=== PATIENT | male | born 1980 | race Hispanic/Latino ===

== ENCOUNTER 2017-05-14 11:32 | Emergency (ER) | payer SELFPAY ==
[2017-05-14] MEDS ORDERED: HYDROcodone/Acetaminophen 5/325 mg Tablet ONE (12:28)
--- NOTE | 2017-05-14 13:04 | RAD ---
THREE VIEWS OF THE RIGHT SHOULDER 05/14/2017 HISTORY: Limited range of motion and pain. COMPARISON: None. FINDINGS: There is mild degenerative change at the right AC joint, with interspace narrowing and superior oste ophyte formation. There is no widening of the AC or CC interspace, and no displaced fracture or dis location is noted. IMPRESSION: No acute findings. Degenerative changes noted at the right acromioclavicular joint. POS: BROOKE
== END 2017-05-14 12:32 | disposition home or self-care (01) ==
LOC: MADERS 11:32
DX: S46.011A Strain of muscle(s) and tendon(s) of the rotator cuff of right shoulder, initial encounter (principal); F17.210 Nicotine dependence, cigarettes, uncomplicated; X50.0XXA Overexertion from strenuous movement or load, initial encounter

== ENCOUNTER 2019-11-25 16:09 | Emergency (ER) | payer SELFPAY ==
[~2019-11-25 16:09] MED LIST: Iopamidol 370 76% 100 ML VIAL ONE
[2019-11-25 17:31] LABS: #Basophils 0.1 thou/uL (0.0-0.2); #Eosinphils 0.2 thou/uL (0.0-0.7); #Lymphocytes 2.6 thou/uL (1.20-3.40); #Monocytes 0.9 thou/uL (0.11-0.59); %Basophils 0.6 % (0.0-1.0); %Eosinophils 1.3 % (0.0-10.0); %Lymphocytes 18.9 % (21.0-51.0); %Monocytes 6.4 % (0.0-10.0); %Neutrophils 72.7 % (42.0-75.0); Hemoglobin 19.1 g/dL (14.0-18.0); Mean Corpuscular HGB CONC 31.3 g/dL (32.0-36.0); Mean Corpuscular Hemoglobin 29.2 pg (27.0-31.0); Mean Corpuscular Volume 93.4 fL (78.0-98.0); Mean Platelet Volume 6.7 fL (7.4-10.4); Platelet Count 348 thou/uL (130-400); RBC Distribution Width 11.7 % (11.5-14.5); Red Blood Cell (RBC) Count 6.54 mill/uL (4.70-6.10); White Blood Cell (WBC) Count 13.7 thou/uL (4.8-10.8)
[2019-11-25] MEDS ORDERED: Sodium Chloride 0.9% 1,000 ML ONE (17:40)
[2019-11-25 17:44] LABS: ALT (SGPT) 32 U/L (8-55); AST (SGOT) 28 U/L (5-34); Albumin 5.3 g/dL (3.5-5.0); Alkaline Phosphatase 70 U/L (40-110); Anion Gap 18 mmol/L (10-20); BUN (Urea Nitrogen) 18 mg/dL (8.9-20.6); Bilirubin, Total 0.8 mg/dL (0.2-1.2); Calc. Creatinine Clearance 0 mL/min (70-130); Calcium 10.3 mg/dL (7.8-10.44); Carbon Dioxide 23 mmol/L (22-29); Chloride 102 mmol/L (98-107); Estimated GFR-MDRD 57; Globulin 3.9 g/dL (2.4-3.5); Glucose 88 mg/dL (70-105); Lipase 29 U/L (8-78); Potassium 4.3 mmol/L (3.5-5.1); Protein, Total 9.2 g/dL (6.0-8.3); Sodium 139 mmol/L (136-145)
--- NOTE | 2019-11-25 17:55 | CT ---
CT OF THE ABDOMEN AND PELVIS WITH CONTRAST: 11/25/19 COMPARISON: None. HISTORY: Abdominal pain. TECHNIQUE: Multiple contiguous axial images were obtained in a CT and pelvis with contrast. Sagittal and coronal reformats were performed. FINDINGS: The liver, gallbladder, kidneys, adrenal glands, spleen, and pancreas are unremarkable. No free air, free fluid, or stranding changes are seen in the abdomen or pelvis. The large and small bowel are unremarkable. The large and small bowel are unremarkable. The appendix is normal. No abdomi nal or pelvic lymphadenopathy are seen. The visualized inferior thorax and abdominal wall soft tissue s are unremarkable. IMPRESSION: No evidence of acute intra-abdominal/pelvic abnormality. POS: C
== END 2019-11-25 18:27 | disposition home or self-care (01) ==
LOC: MADERS 16:09
DX: R10.32 Left lower quadrant pain (principal); F10.10 Alcohol abuse, uncomplicated; D75.1 Secondary polycythemia; F17.210 Nicotine dependence, cigarettes, uncomplicated
CPT/HCPCS: 36415; 74177; 80053; 83605; 83690; 85025; J7050; Q9967